=== PATIENT | male | born 1950 | race African-American/Black ===

== ENCOUNTER 2022-08-11 17:11 | Emergency (ER) | payer OTHER, MEDICAID ==
[~2022-08-11] VITALS: Ht 172.7 cm; Wt 91.0 kg
[2022-08-11 17:27] VITALS: BP 106/64
[2022-08-11] MEDS ORDERED: SODIUM CHLORIDE 0.9% 1,000 ML IV ONE (18:30)
== END 2022-08-11 18:52 | disposition left against medical advice (07) ==
LOC: ER 17:11
DX: R55 Syncope and collapse (principal); J44.9 Chronic obstructive pulmonary disease, unspecified; I10 Essential (primary) hypertension; F12.10 Cannabis abuse, uncomplicated
CPT/HCPCS: 93005; 99283; J7030

== ENCOUNTER 2024-02-08 21:19 | Emergency (ER) | payer OTHER, MEDICAID ==
[~2024-02-08] VITALS: Ht 182.9 cm; Wt 105.0 kg
[2024-02-08 21:21] VITALS: O2SAT 99
[2024-02-08] MEDS ORDERED: AZITHROMYCIN 500MG/250ML 250 ML IV ONE (21:45)
[2024-02-08 22:01] LABS: BASOPHILS % 0.5 % (0.0-2.0); EOSINOPHILS % 2.3 % (0.0-5.0); HEMATOCRIT. 33.7 % (42.0-52.0); HEMOGLOBIN. 11.2 g/dL (14.0-18.0); LYMPHOCYTES % 42.5 % (20.0-50.0); MEAN CORPUSCULAR HEMOGLOBIN 29.1 pg (28.0-32.0); MEAN CORPUSCULAR HGB CONC 33.3 g/dL (31.0-37.0); MEAN CORPUSCULAR VOLUME 87.4 fL (80.0-94.0); MEAN PLATELET VOLUME 8.6 fl (7.4-10.4); MONOCYTES % 6.5 % (2.0-8.0); NEUTROPHILS % 48.2 % (40.0-76.0); PLATELET 127 x1000/uL (130-400); RED BLOOD CELL COUNT 3.85 mill/uL (4.7-6.1); RED CELL DISTRIBUTION WIDTH 14.1 % (11.6-14.6)
[2024-02-08 22:12] LABS: CHLORIDE 109 mEq/L (98-107); SODIUM 139 mEq/L (136-145)
[2024-02-08 22:13] LABS: CALCIUM 8.6 mg/dL (8.7-10.4); CARBON DIOXIDE 22 mEq/L (21-32); PARTIAL THROMBOPLASTIN TIME 26.9 sec (23.4-31.0); PROTHROMBIN TIME 10.7 sec (9.6-11.0)
[2024-02-08 22:18] LABS: CREATININE 1.5 mg/dL (0.6-1.3); ETHANOL BLOOD 114 mg/dL (<10); GLUCOSE 81 mg/dL (70-105); UREA NITROGEN BLOOD 19 mg/dL (9-23)
[2024-02-08 22:20] LABS: ALANINE AMINOTRANSFERASE 19 IU/L (10-49); ALBUMIN 4.3 g/dL (3.2-4.8); ASPARTATE AMINOTRANSFERASE 24 IU/L (<34); BILIRUBIN DIRECT 0.2 mg/dL (<=3.0); BILIRUBIN TOTAL 0.6 mg/dL (0.1-1.0); PROTEIN TOTAL 6.9 g/dL (6.0-8.3); TROPONIN I HIGH SENSITIVITY 8 ng/L (3.0-53)
[2024-02-08] MEDS: SODIUM CHLORIDE 0.9% 1000ML BAG (SEPSIS BOLUS) IV ONE (22:51)
[2024-02-08] MEDS: CEFTRIAXONE 1GM/50ML 50 ML IV ONE (22:51)
[2024-02-08] MEDS ORDERED: ASPIRIN 81MG TABLET PO ONE (23:15)
[2024-02-09] MEDS: ASPIRIN 81MG TABLET PO NR (00:02)
[2024-02-09] MEDS: AZITHROMYCIN 500MG/250ML 250 ML IV NR (00:02)
[2024-02-09 02:01] VITALS: BP 141/72; PULSE 81; RESP 17; TEMP 36.16956; O2SAT 98
== END 2024-02-09 02:10 | disposition short-term general hospital (02) ==
LOC: ER 21:19
DX: R55 Syncope and collapse (principal); I10 Essential (primary) hypertension; R41.82 Altered mental status, unspecified; I95.9 Hypotension, unspecified; F12.10 Cannabis abuse, uncomplicated; J44.9 Chronic obstructive pulmonary disease, unspecified
CPT/HCPCS: 80076; 80048; 80320; 83880; 83605; 85025; 85610; 85730; 87040; 84484; 36415; 84145; 71045; 70450; 93005; 96365; 99285; 96367; J0456; J0696; J7030; G0480